=== PATIENT | male | born 1995 | race Caucasian/White ===

== ENCOUNTER 2021-03-04 23:12 | Emergency (ER) | payer OTHER ==
[~2021-03-04] VITALS: Ht 180.3 cm; Wt 74.8 kg
[2021-03-04 23:12] VITALS: BP 126/94
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
== END 2021-03-05 01:42 | disposition home or self-care (01) ==
LOC: ER 23:30
DX: S00.83XA Contusion of other part of head, initial encounter (principal); M54.2 Cervicalgia; Y04.0XXA Assault by unarmed brawl or fight, initial encounter; Y93.89 Activity, other specified; Y92.89 Other specified places as the place of occurrence of the external cause; Y99.8 Other external cause status
CPT/HCPCS: 70450; 70486; 72125; 99285; J7030